=== PATIENT | male | born 1985 | race Caucasian/White ===

== ENCOUNTER → 2016-04-08 | Outpatient (REF) ==
--- NOTE | 2016-04-08 14:49 | REP ---
Clinical: Pain and disability . Technique: Internal rotation, external rotation, and Y view right shoulder . Findings: No acute fracture or dislocation. The acromioclavicular and glenohumeral joints are intact. No periarticular calcifications or degenerative changes are appreciated. Sub acromial space is normal. Surrounding soft tissues are unremarkable. Impression: Normal right shoulder radiographs. Signed by Raoul Paul MD 04/08/2016 02:40 P
--- NOTE | 2016-04-08 14:51 | REP ---
Clinical: thoracic pain. Technique: AP, lateral, and swimmers views. Findings: Alignment and kyphosis is maintained. Vertebral bodies intact. No acute fracture / compression injury or subluxation. No degenerative changes. Paravertebral soft tissues are normal. Impression: Normal thoracic spine series. Signed by Raoul Paul MD 04/08/2016 02:42 P
--- NOTE | 2016-04-08 15:12 | REP ---
CERVICAL SPINE, SEVEN VIEWS: HISTORY: Degenerative disc disease. There is no acute fracture or subluxation. The C4-5 and C5-6 intervertebral discs are decreased in height consistent with disc degeneration. The right neural foramina are patent. The left neural foramina are poorly seen. IMPRESSION: Degenerative change as described above. Signed by Tristen Shelton MD 04/08/2016 03:30 P
== END ==
LOC: M SMT 13:54
PROVIDERS: ATTEND Internal Medicine
DX: Z02.71 Encounter for disability determination (principal)